=== PATIENT | female | born 1955 | race Caucasian/White ===

== ENCOUNTER 2020-05-07 11:00 | Emergency (ER) | payer MEDICAID ==
[~2020-05-07] VITALS: Ht 152.4 cm; Wt 82.0 kg
[2020-05-07] MEDS ORDERED: ONDANSETRON HCL 4MG/2ML INJ IV ONE (12:15)
[2020-05-07] MEDS ORDERED: KETOROLAC 30MG/ML VIAL IV ONE (12:15)
[2020-05-07] MEDS ORDERED: CYCLOBENZAPRINE 10MG TABLET PO ONE (13:45)
[2020-05-07] MEDS ORDERED: MORPHINE SULFATE 4 MG/ML CPJ (NOT FOR IM USE) IV ONE (13:45)
[2020-05-07 14:11] VITALS: BP 101/58
[2020-05-07] MEDS ORDERED: ACETAMINOPHEN 325MG TABLET PO ONE (14:30)
== END 2020-05-07 16:55 | disposition home or self-care (01) ==
LOC: EDBD 11:42 → ER 11:42
DX: M54.5 Low back pain (principal); E11.9 Type 2 diabetes mellitus without complications; I10 Essential (primary) hypertension
CPT/HCPCS: 96374; 96375; 99284; J1885; J2270; J2405

== ENCOUNTER 2020-07-08 05:00 | Inpatient (IN) | payer MEDICAID ==
[~2020-07-08] VITALS: Ht 152.4 cm; Wt 85.3 kg
[2020-07-08] VITALS (70 sets, daily range): BP systolic 89–144; BP diastolic 34–84
[2020-07-08] MEDS ORDERED: THROMBIN (BOVINE) 5000 UNITS/VIAL TOP ONE (06:51)
[2020-07-08] MEDS ORDERED: LIDOCAINE HCL/EPINEPHRINE 1%-EPI 1:100,000 20 ML VIAL ONE (06:51)
[2020-07-08] MEDS ORDERED: BACITRACIN 50,000 UNITS/VIAL ONE (06:51)
[2020-07-08] MEDS ORDERED: ROCURONIUM BROMIDE 10MG/ML VIAL 5ML IV ONE (07:21)
[2020-07-08] MEDS ORDERED: PROPOFOL 200MG/20ML VIAL IV ONE (07:21)
[2020-07-08] MEDS ORDERED: DEXAMETHASONE 4MG/ML 1ML VIAL ONE (07:22)
[2020-07-08] MEDS ORDERED: CEFAZOLIN SODIUM 1000MG/VIAL ONE (07:22)
[2020-07-08] MEDS ORDERED: NICARDIPINE 100 MG in SODIUM CHLORIDE 0.9% 60 ML IV PRN (07:30)
[2020-07-08] MEDS ORDERED: HYDROMORPHONE HCL/PF 2MG/ML (OR) ONE (07:37)
[2020-07-08] MEDS ORDERED: METOPROLOL TARTRATE 5MG/5ML VIAL IV ONE ×2 (08:16→08:58)
[2020-07-08] MEDS ORDERED: HYDRALAZINE 20MG/ML VIAL ONE ×2 (08:16→08:58)
[2020-07-08] MEDS ORDERED: NEOSTIGMINE METHYLSULFATE 1MG/ML 10 ML VIAL ONE (08:48)
[2020-07-08] MEDS ORDERED: GLYCOPYRROLATE 0.2 MG/ML 2ML VIAL ONE (08:48)
[2020-07-08] MEDS ORDERED: NAPR-681 PO (09:13)
[2020-07-08] MEDS ORDERED: ALBU90AE IH (09:13)
[2020-07-08] MEDS ORDERED: GABA-531 PO (09:13)
[2020-07-08] MEDS ORDERED: ERTU5TAB PO (09:13)
[2020-07-08] MEDS ORDERED: FLUT15.844 NS (09:13)
[2020-07-08] MEDS ORDERED: IRBE150T24 PO (09:13)
[2020-07-08] MEDS ORDERED: METF-414 PO (09:13)
[2020-07-08] MEDS ORDERED: ALOG25TA PO (09:13)
[2020-07-08] MEDS ORDERED: HYDROMORPHONE PCA 10MG/50ML IV PRN (09:45)
[2020-07-08] MEDS ORDERED: DIPHENHYDRAMINE INJ IV PRN (09:45)
[2020-07-08] MEDS ORDERED: ONDANSETRON INJ IV PRN (09:45)
[2020-07-08] MEDS ORDERED: NALOXONE INJ IV PRN (09:45)
[2020-07-08] MEDS: DEXT 5%/LACTATED RINGERS 1,000 ML IV SCH ×2 (09:47→18:46)
[2020-07-08] MEDS: MORPHINE SULFATE 4 MG/ML CPJ (NOT FOR IM USE) IV PRN ×2 (10:20→19:39)
[2020-07-08] MEDS: DEXAMETHASONE 4MG/ML 1ML VIAL IV SCH ×3 (11:37→23:08)
[2020-07-08] MEDS ORDERED: CEFAZOLIN SODIUM 1000MG/VIAL IV SCH (14:00)
[2020-07-08] MEDS: CEFAZOLIN 1000MG PREMIX 50 ML IV SCH ×2 (14:27→23:06)
[2020-07-08] MEDS ORDERED: HYDRALAZINE 20MG/ML VIAL IV PRN (17:30)
[2020-07-09] VITALS (40 sets, daily range): BP systolic 71–165; BP diastolic 16–98
[2020-07-09] MEDS: DEXT 5%/LACTATED RINGERS 1,000 ML IV SCH ×2 (04:22→14:02)
[2020-07-09 05:49] LABS: BASOPHILS % 0.1 % (0.0-2.0); HEMATOCRIT. 36.8 % (36.0-48.0); HEMOGLOBIN. 12.3 g/dL (12.0-16.0); LYMPHOCYTES % 10.7 % (20.0-50.0); MEAN CORPUSCULAR HEMOGLOBIN 32.9 pg (28.0-32.0); MEAN CORPUSCULAR VOLUME 98.5 fL (81.0-99.0); MEAN PLATELET VOLUME 9.5 fl (7.4-10.4); MONOCYTES % 4.8 % (2.0-8.0); NEUTROPHILS % 84.4 % (40.0-76.0); PLATELET 121 x1000/uL (130-400); RED BLOOD CELL COUNT 3.74 mill/uL (4.2-5.4); RED CELL DISTRIBUTION WIDTH 13.9 % (11.6-14.6)
[2020-07-09] MEDS: DEXAMETHASONE 4MG/ML 1ML VIAL IV SCH ×2 (06:07→11:06)
[2020-07-09] MEDS: CEFAZOLIN 1000MG PREMIX 50 ML IV SCH (06:07)
[2020-07-09] MEDS: MORPHINE SULFATE 4 MG/ML CPJ (NOT FOR IM USE) IV PRN ×3 (06:19→20:09)
[2020-07-09] MEDS ORDERED: DEXTROSE 50% WATER 50ML SYRINGE IV PRN (12:45)
[2020-07-09] MEDS: BLOOD SUGAR DIAGNOSTIC STRIP TEST SCH ×2 (17:19→20:06)
[2020-07-09] MEDS: INSULIN LISPRO 100 UNITS/ML SUBCUT SCH ×2 (17:25→20:50)
[2020-07-09] MEDS ORDERED: HYDRALAZINE 10 MG in SODIUM CHLORIDE 0.9% 49.5 ML IV PRN (19:00)
[2020-07-10] VITALS: BP 119/50
[2020-07-10] MEDS: DEXT 5%/LACTATED RINGERS 1,000 ML IV SCH ×3 (01:12→22:42)
[2020-07-10 04:00] VITALS: BP 116/49
[2020-07-10] MEDS: BLOOD SUGAR DIAGNOSTIC STRIP TEST SCH ×4 (07:20→21:00)
[2020-07-10 08:00] VITALS: BP 131/58
[2020-07-10] MEDS: INSULIN LISPRO 100 UNITS/ML SUBCUT SCH ×4 (08:50→21:00)
[2020-07-10] MEDS ORDERED: HYDROCODONE/ACETAMINOPHEN 5/325MG TABLET PO PRN (09:30)
[2020-07-10] MEDS: MORPHINE SULFATE 4 MG/ML CPJ (NOT FOR IM USE) IV PRN ×3 (09:34→23:13)
[2020-07-10 11:06] LABS: HEMATOCRIT. 34.1 % (36.0-48.0); HEMOGLOBIN. 11.3 g/dL (12.0-16.0); LYMPHOCYTES % 10.3 % (20.0-50.0); MEAN CORPUSCULAR HEMOGLOBIN 32.6 pg (28.0-32.0); MEAN CORPUSCULAR VOLUME 98.5 fL (81.0-99.0); MEAN PLATELET VOLUME 9.8 fl (7.4-10.4); NEUTROPHILS % 84.7 % (40.0-76.0); PLATELET 107 x1000/uL (130-400); RED BLOOD CELL COUNT 3.46 mill/uL (4.2-5.4); RED CELL DISTRIBUTION WIDTH 13.9 % (11.6-14.6)
[2020-07-10 11:40] LABS: CHLORIDE 102 mEq/L (98-107)
[2020-07-10 12:00] VITALS: BP 128/52
[2020-07-10] MEDS: GABAPENTIN 300MG CAPSULE PO SCH ×2 (13:02→22:41)
[2020-07-10 16:00] VITALS: BP 130/68
[2020-07-10 20:00] VITALS: BP 134/59
[2020-07-11] VITALS: BP 126/60
[2020-07-11 04:00] VITALS: BP 116/65
[2020-07-11] MEDS: GABAPENTIN 300MG CAPSULE PO SCH ×2 (06:42→13:18)
[2020-07-11] MEDS: DEXT 5%/LACTATED RINGERS 1,000 ML IV SCH ×2 (06:45→16:02)
[2020-07-11] MEDS: BLOOD SUGAR DIAGNOSTIC STRIP TEST SCH ×3 (06:57→17:59)
[2020-07-11] MEDS: INSULIN LISPRO 100 UNITS/ML SUBCUT SCH ×3 (07:50→18:45)
[2020-07-11 08:00] VITALS: BP 138/63
[2020-07-11 09:24] LABS: HEMATOCRIT. 35.6 % (36.0-48.0); HEMOGLOBIN. 12.1 g/dL (12.0-16.0); LYMPHOCYTES % 15.2 % (20.0-50.0); MEAN CORPUSCULAR HEMOGLOBIN 33.4 pg (28.0-32.0); MEAN CORPUSCULAR VOLUME 97.9 fL (81.0-99.0); MEAN PLATELET VOLUME 9.3 fl (7.4-10.4); NEUTROPHILS % 77.8 % (40.0-76.0); PLATELET 109 x1000/uL (130-400); RED BLOOD CELL COUNT 3.63 mill/uL (4.2-5.4); RED CELL DISTRIBUTION WIDTH 13.8 % (11.6-14.6)
[2020-07-11 09:35] LABS: CHLORIDE 105 mEq/L (98-107)
[2020-07-11 12:00] VITALS: BP 159/67
[2020-07-11 16:00] VITALS: BP 130/69
[2020-07-11 18:44] VITALS: BP 130/69
== END 2020-07-11 20:21 | disposition home health service (06) | DRG 321 ==
LOC: OR 05:00 → MICUNO 05:01 → 6EST 07-09 13:30
PROVIDERS: ADMIT Internal Medicine; ATTEND Internal Medicine
PROC: 0RG10A0 Fusion of Cervical Vertebral Joint with Interbody Fusion Device, Anterior Approach, Anterior Column, Open Approach (ICD-10-PCS; principal; 2020-07-09)
PROC: 0RB30ZZ Excision of Cervical Vertebral Disc, Open Approach (ICD-10-PCS; 2020-07-09)
PROC: 4A11X4G Monitoring of Peripheral Nervous Electrical Activity, Intraoperative, External Approach (ICD-10-PCS; 2020-07-09)
DX: M48.02 Spinal stenosis, cervical region (principal); M47.12 Other spondylosis with myelopathy, cervical region; G82.50 Quadriplegia, unspecified; D69.6 Thrombocytopenia, unspecified; M50.022 Cervical disc disorder at C5-C6 level with myelopathy; M50.122 Cervical disc disorder at C5-C6 level with radiculopathy; T38.0X5A Adverse effect of glucocorticoids and synthetic analogues, initial encounter; E66.9 Obesity, unspecified; I10 Essential (primary) hypertension; D72.829 Elevated white blood cell count, unspecified; Z68.36 Body mass index [BMI] 36.0-36.9, adult; Z98.1 Arthrodesis status; Z88.8 Allergy status to other drugs, medicaments and biological substances; Z79.899 Other long term (current) drug therapy; Y92.89 Other specified places as the place of occurrence of the external cause
CPT/HCPCS: 36415; 71045; 72040; 72141; 76000; 80048; 80061; 82962; 83036; 83735; 83880; 84484; 85025; 86850; 86900; 93005; 93970; 95925; 95926; 95928; 95929; 97110; 97116; 97162; 97166; 97530; 97535; C1713; J0360; J0690; J1100; J1170; J1200; J1815; J2270; J2405; J2704; J2710; J3490; J7050; J7121; L0172

== ENCOUNTER → 2020-10-18 | Outpatient (CLI) | payer MEDICAID ==
[~2020-10-18] MED LIST: ACET-2708 PO; ALBU90AE IH; ALOG25TA PO; ASCO-339 PO; CALC-1042 PO; ERTU5TAB PO; FAMO40TA7 PO; FLUT15.844 NS; GABA-531 PO; IBUP-2028 PO; IRBE150T24 PO; METF-414 PO; MONT10TA26 PO; NAPR-681 PO; OLOP5DRO14 BOTHEYE
== END | disposition home or self-care (01) ==
LOC: LAB 08:11
PROVIDERS: ATTEND Internal Medicine Gastroenterology
DX: Z01.812 Encounter for preprocedural laboratory examination (principal); Z20.828 Contact with and (suspected) exposure to other viral communicable diseases
CPT/HCPCS: C9803; U0003

== ENCOUNTER → 2020-10-21 | Day surgery (SDC) | payer MEDICAID ==
[~2020-10-21] VITALS: Ht 152.4 cm; Wt 81.6 kg
[~2020-10-21] MED LIST changes: +DIPHENHYDRAMINE 50MG/ML VIAL ONE; +FENTANYL CITRATE/PF 50MCG/ML 2ML VIAL ONE; +MIDAZOLAM HCL 2 MG/2 ML VIAL ONE; +PROPOFOL 200MG/20ML VIAL IV ONE; +SIMETHICONE 40 MG/0.6 ML 30ML ONE
[2020-10-21 09:03] LABS: BASOPHILS % 0.5 % (0.0-2.0); EOSINOPHILS % 4.1 % (0.0-5.0); HEMATOCRIT. 39.6 % (36.0-48.0); HEMOGLOBIN. 13.3 g/dL (12.0-16.0); LYMPHOCYTES % 31.1 % (20.0-50.0); MEAN CORPUSCULAR HEMOGLOBIN 31.5 pg (28.0-32.0); MEAN CORPUSCULAR VOLUME 93.6 fL (81.0-99.0); MEAN PLATELET VOLUME 9.5 fl (7.4-10.4); MONOCYTES % 10.1 % (2.0-8.0); NEUTROPHILS % 54.2 % (40.0-76.0); PLATELET 134 x1000/uL (130-400); RED BLOOD CELL COUNT 4.23 mill/uL (4.2-5.4); RED CELL DISTRIBUTION WIDTH 14.8 % (11.6-14.6)
[2020-10-21 09:04] LABS: INR 1.1; PARTIAL THROMBOPLASTIN TIME 28.9 sec (23.4-31.0); PROTHROMBIN TIME 11.9 sec (9.6-11.0)
== END | disposition home or self-care (01) ==
LOC: OR 08:03
PROVIDERS: ATTEND Internal Medicine Gastroenterology
DX: R19.4 Change in bowel habit (principal); K29.50 Unspecified chronic gastritis without bleeding; K57.30 Diverticulosis of large intestine without perforation or abscess without bleeding; K31.89 Other diseases of stomach and duodenum; I85.00 Esophageal varices without bleeding; I10 Essential (primary) hypertension; E78.00 Pure hypercholesterolemia, unspecified; E11.9 Type 2 diabetes mellitus without complications; J45.909 Unspecified asthma, uncomplicated; Z79.82 Long term (current) use of aspirin; Z79.84 Long term (current) use of oral hypoglycemic drugs; Z79.899 Other long term (current) drug therapy; Z98.890 Other specified postprocedural states
CPT/HCPCS: 36415; 43239; 45378; 71045; 82962; 85025; 85610; 85730; 88305; 88313; 93005; J1200; J2250; J2704; J3010

== ENCOUNTER 2022-11-09 17:40 | Inpatient (IN) | payer MEDICARE ==
[~2022-11-09] VITALS: Ht 154.9 cm; Wt 81.2 kg
[~2022-11-09 17:40] MED LIST changes: -ALBU90AE IH; -DIPHENHYDRAMINE 50MG/ML VIAL ONE; -FENTANYL CITRATE/PF 50MCG/ML 2ML VIAL ONE; -GABA-531 PO; +GABA-532 PO; -MIDAZOLAM HCL 2 MG/2 ML VIAL ONE; +MONT-39 PO; -MONT10TA26 PO; -NAPR-681 PO; -OLOP5DRO14 BOTHEYE; +OLOP5DRO25 BOTHEYE; -PROPOFOL 200MG/20ML VIAL IV ONE; -SIMETHICONE 40 MG/0.6 ML 30ML ONE
[2022-11-09] MEDS ORDERED: ASPIRIN 81MG TABLET PO ONE (19:00)
[2022-11-09 21:01] LABS: BASOPHILS % 0.2 % (0.0-2.0); EOSINOPHILS % 1.9 % (0.0-5.0); HEMATOCRIT. 37.7 % (36.0-48.0); HEMOGLOBIN. 12.1 g/dL (12.0-16.0); LYMPHOCYTES % 21.4 % (20.0-50.0); MEAN CORPUSCULAR HEMOGLOBIN 29.4 pg (28.0-32.0); MEAN CORPUSCULAR VOLUME 91.2 fL (81.0-99.0); MEAN PLATELET VOLUME 9.8 fl (7.4-10.4); NEUTROPHILS % 68.5 % (40.0-76.0); PLATELET 122 x1000/uL (130-400); RED BLOOD CELL COUNT 4.13 mill/uL (4.2-5.4); RED CELL DISTRIBUTION WIDTH 17.1 % (11.6-14.6)
[2022-11-09 21:32] LABS: CHLORIDE 103 mEq/L (98-107)
[2022-11-10] MEDS ORDERED: KETOROLAC 15MG/ML VIAL IV ONE (00:45)
[2022-11-10] MEDS ORDERED: ASPIRIN 81MG TABLET PO ONE (00:45)
[2022-11-10] MEDS ORDERED: IOHEXOL-350 100 ML BOTTLE ONE (05:23)
[2022-11-10] MEDS ORDERED: MORPHINE SULFATE 2 MG/ML CPJ (NOT FOR IM USE) IV NR (11:30)
[2022-11-10 11:51] VITALS: BP 151/74
[2022-11-10 12:11] VITALS: BP 140/63
[2022-11-10 12:37] VITALS: BP 151/74
[2022-11-10] MEDS ORDERED: AM250 PO (14:43)
[2022-11-10] MEDS ORDERED: ERTU15TA PO (14:45)
[2022-11-10 16:00] VITALS: BP 135/57
[2022-11-10] MEDS ORDERED: ONDANSETRON HCL 4MG/2ML INJ IV PRN (16:15)
[2022-11-10] MEDS ORDERED: DEXTROSE 50% WATER 50ML SYRINGE IV PRN (16:15)
[2022-11-10] MEDS ORDERED: IPRATROPIUM/ALBUTEROL 0.5-3(2.5)MG/3ML NEB HHN PRN (16:15)
[2022-11-10] MEDS: BLOOD SUGAR DIAGNOSTIC STRIP TEST SCH ×2 (16:57→21:24)
[2022-11-10] MEDS: LOSARTAN POTASSIUM 50 MG TABLET PO SCH (17:01)
[2022-11-10] MEDS: ENOXAPARIN 40MG/0.4ML SYR SUBCUT SCH (17:04)
[2022-11-10] MEDS: INSULIN LISPRO 100 UNITS/ML SUBCUT SCH ×2 (17:18→21:29)
[2022-11-10] MEDS ORDERED: DICLOFENAC (19:13)
[2022-11-10] MEDS ORDERED: AZIT250T12 PO (19:13)
[2022-11-10] MEDS ORDERED: NEO/5DRO7 EACHEYE (19:13)
[2022-11-10] MEDS ORDERED: ERYT1OIN6 EACHEYE (19:13)
[2022-11-10] MEDS ORDERED: PRED10TA PO (19:13)
[2022-11-10] MEDS ORDERED: MONT-39 PO (19:13)
[2022-11-10] MEDS ORDERED: FAMO40TA7 PO (19:13)
[2022-11-10] MEDS ORDERED: TRAM50TA3 PO (19:13)
[2022-11-10] MEDS ORDERED: OMEP40CA20 PO (19:13)
[2022-11-10] MEDS ORDERED: CYAN-50 PO (19:13)
[2022-11-10] MEDS ORDERED: METF-414 PO (19:13)
[2022-11-10] MEDS ORDERED: FLUT16SP15 BOTHNSTRLS (19:13)
[2022-11-10] MEDS ORDERED: ALBU6.7H15 INH (19:13)
[2022-11-10] MEDS ORDERED: VALA100044 PO (19:14)
[2022-11-10 20:00] VITALS: BP 108/43
[2022-11-10] MEDS ORDERED: *PATIENT'S OWN MEDICATION STORAGE XX SCH (21:00)
[2022-11-11] VITALS: BP 105/40
[2022-11-11] MEDS: TRAMADOL 50MG TABLET PO PRN ×3 (01:20→21:35)
[2022-11-11 04:00] VITALS: BP 107/47
[2022-11-11] MEDS: BLOOD SUGAR DIAGNOSTIC STRIP TEST SCH ×4 (07:05→21:32)
[2022-11-11] MEDS: INSULIN LISPRO 100 UNITS/ML SUBCUT SCH ×4 (07:05→21:32)
[2022-11-11 07:51] LABS: HEMATOCRIT 34.7 % (36.0-48.0); HEMOGLOBIN 11.4 g/dL (12.0-16.0); MEAN CORPUSCULAR HEMOGLOBIN 29.7 pg (28.0-32.0); MEAN CORPUSCULAR VOLUME 90.2 fL (81.0-99.0); PLATELET 112 x1000/uL (130-400); RED BLOOD CELL COUNT 3.84 mill/uL (4.2-5.4); RED CELL DISTRIBUTION WIDTH 17.7 % (11.6-14.6)
[2022-11-11 07:57] VITALS: BP 122/55
[2022-11-11 08:10] LABS: INR 1.2; PROTHROMBIN TIME 12.7 sec (9.6-11.0)
[2022-11-11] MEDS: LOSARTAN POTASSIUM 50 MG TABLET PO SCH (08:44)
[2022-11-11] MEDS: ASPIRIN 81MG TABLET PO SCH (08:45)
[2022-11-11 09:29] LABS: CHLORIDE 104 mEq/L (98-107)
[2022-11-11 09:35] LABS: HDL CHOLESTEROL 68 mg/dL (40-59); LDL CHOLESTEROL 80 mg/dL (5-100)
[2022-11-11 12:00] VITALS: BP 116/52
[2022-11-11 16:00] VITALS: BP 114/49
[2022-11-11] MEDS: ENOXAPARIN 40MG/0.4ML SYR SUBCUT SCH (17:08)
[2022-11-11 20:00] VITALS: BP 118/60
[2022-11-12] VITALS: BP 115/62
[2022-11-12 04:00] VITALS: BP 129/50
[2022-11-12] MEDS: BLOOD SUGAR DIAGNOSTIC STRIP TEST SCH ×2 (06:50→11:29)
[2022-11-12] MEDS: INSULIN LISPRO 100 UNITS/ML SUBCUT SCH ×2 (07:20→12:32)
[2022-11-12 07:48] VITALS: BP 109/37
[2022-11-12] MEDS: LOSARTAN POTASSIUM 50 MG TABLET PO SCH (08:20)
[2022-11-12] MEDS: ASPIRIN 81MG TABLET PO SCH (08:20)
[2022-11-12] MEDS ORDERED: CLOTRIMAZOLE 1% VAGINAL CREAM 45GM VG NR (11:00)
[2022-11-12] MEDS ORDERED: FLUCONAZOLE 100MG TABLET PO NR (11:00)
[2022-11-12 12:00] VITALS: BP 119/47
[2022-11-12 12:31] LABS: ETHANOL BLOOD < 10 mg/dL; HDL CHOLESTEROL 64 mg/dL (40-59); LDL CHOLESTEROL 78 mg/dL (5-100); T4 FREE 1.24 ng/dL (0.76-1.46)
[2022-11-12 12:42] LABS: VITAMIN B12 SERUM 1670 pg/mL (211-911)
[2022-11-12 12:54] LABS: BASOPHILS % 0.5 % (0.0-2.0); EOSINOPHILS % 2.6 % (0.0-5.0); HEMATOCRIT. 34.7 % (36.0-48.0); HEMOGLOBIN. 11.2 g/dL (12.0-16.0); LYMPHOCYTES % 35.7 % (20.0-50.0); MEAN CORPUSCULAR VOLUME 92.8 fL (81.0-99.0); MONOCYTES % 8.7 % (2.0-8.0); NEUTROPHILS % 52.5 % (40.0-76.0); RED BLOOD CELL COUNT 3.74 mill/uL (4.2-5.4); RED CELL DISTRIBUTION WIDTH 17.9 % (11.6-14.6)
[2022-11-12 12:56] LABS: FOLIC ACID (FOLATE) SERUM > 20.00 ng/mL (>5.38)
[2022-11-12 13:18] VITALS: BP 119/47
[2022-11-12 14:16] LABS: PLATELET 101 x1000/uL (130-400)
[2022-11-12 15:04] LABS: *AMPHETAMINES SCREEN URINE NEGATIVE (NEGATIVE); *BARBITURATES SCREEN URINE NEGATIVE (NEGATIVE); *BENZODIAZEPINES SCREEN URINE NEGATIVE (NEGATIVE); *COCAINE SCREEN URINE NEGATIVE (NEGATIVE); CANNABINOID URINE SCREEN NEGATIVE (NEGATIVE); METHADONE URINE SCREEN NEGATIVE (NEGATIVE); OPIATES URINE SCREEN NEGATIVE (NEGATIVE); PHENCYCLIDINE URINE SCREEN NEGATIVE (NEGATIVE)
[2022-11-12 16:00] VITALS: BP 117/58
[2022-11-12] MEDS ORDERED: NALOXONE HCL 0.4MG/ML VIAL IV PRN (16:00)
== END 2022-11-12 16:17 | disposition home or self-care (01) | DRG 206 ==
LOC: ER 17:40 → 3WST 11-10 02:32 → ENRESERV 11-10 07:56
PROVIDERS: ADMIT Internal Medicine; ATTEND Internal Medicine
DX: M94.0 Chondrocostal junction syndrome [Tietze] (principal); K74.60 Unspecified cirrhosis of liver; D69.6 Thrombocytopenia, unspecified; E66.9 Obesity, unspecified; E11.9 Type 2 diabetes mellitus without complications; E78.5 Hyperlipidemia, unspecified; G83.9 Paralytic syndrome, unspecified; R29.810 Facial weakness; E78.00 Pure hypercholesterolemia, unspecified; R26.89 Other abnormalities of gait and mobility; I11.9 Hypertensive heart disease without heart failure; Z79.84 Long term (current) use of oral hypoglycemic drugs; Z88.6 Allergy status to analgesic agent; Z88.8 Allergy status to other drugs, medicaments and biological substances; Z79.899 Other long term (current) drug therapy; Z68.33 Body mass index [BMI] 33.0-33.9, adult
CPT/HCPCS: 36415; 70544; 70551; 71045; 71275; 80048; 80053; 80061; 80305; 80320; 82607; 82746; 82962; 83036; 84439; 84443; 84481; 84484; 85025; 85027; 85379; 93005; 93306; 93880; 97162; 99285; J1650; J1815; J1885; J2270; Q9967; G0480

== ENCOUNTER 2023-10-24 10:00 | Emergency (ER) | payer MEDICARE, MEDICAID ==
[~2023-10-24] VITALS: Ht 144.8 cm; Wt 82.0 kg
[~2023-10-24 10:00] MED LIST changes: -ACET-2708 PO; +ALBU6.7H15 INH; -ALOG25TA PO; +AM250 PO; -ASCO-339 PO; +AZIT250T12 PO; -CALC-1042 PO; +CYAN-50 PO; +DICLOFENAC; +ERTU15TA PO; -ERTU5TAB PO; +ERYT1OIN6 EACHEYE; -FLUT15.844 NS; +FLUT16SP15 BOTHNSTRLS; -GABA-532 PO; -IBUP-2028 PO; +NEO/5DRO7 EACHEYE; -OLOP5DRO25 BOTHEYE; +OMEP40CA20 PO; +PRED10TA PO; +TRAM50TA3 PO; +VALA100044 PO
[2023-10-24 10:05] VITALS: O2SAT 99
[2023-10-24] MEDS ORDERED: KETOROLAC 60MG/2ML VIAL IM ONE (11:45)
[2023-10-24] MEDS ORDERED: CYCLOBENZAPRINE 10MG TABLET PO ONE (11:45)
[2023-10-24] MEDS ORDERED: OXYCODONE HCL 5MG TABLET PO ONE (12:45)
[2023-10-24] MEDS ORDERED: TRAM50TA3 MT (13:54)
[2023-10-24] MEDS ORDERED: IBUP-2029 MT (13:54)
[2023-10-24 14:43] VITALS: BP 120/59
[2023-10-24 14:47] VITALS: PULSE 75; RESP 16; TEMP 97.5
== END 2023-10-24 14:48 | disposition home or self-care (01) ==
LOC: ER 10:00
DX: M54.9 Dorsalgia, unspecified (principal); M79.604 Pain in right leg; E11.9 Type 2 diabetes mellitus without complications; I10 Essential (primary) hypertension; Z88.6 Allergy status to analgesic agent; Z88.8 Allergy status to other drugs, medicaments and biological substances
CPT/HCPCS: 99283; 72100; 96372; J1885